=== PATIENT | female | born 2000 | race Two or more races ===

== ENCOUNTER 2021-02-08 00:35 | Outpatient (CLI) | payer OTHER ==
[2021-02-08] MEDS ORDERED: PRENATAL CAPLE1 EAC1 PO (02:57)
[2021-02-08] MEDS ORDERED: FE C TABLET1 EACH PO (02:57)
== END 2021-02-08 12:00 | disposition home or self-care (01) ==
LOC: OBS/DEL 00:35 → CPU-OBS 00:35 → OBS/DEL 00:39 → CPU-OBS 12:00
PROVIDERS: ATTEND Specialist
DX: R10.2 Pelvic and perineal pain (principal); Z3A.24 24 weeks gestation of pregnancy

== ENCOUNTER 2021-04-07 19:56 | Emergency (ER) | payer OTHER ==
[~2021-04-07] VITALS: Ht 137.2 cm; Wt 50.3 kg
[~2021-04-07 19:56] MED LIST: FE C TABLET1 EACH PO; PRENATAL CAPLE1 EAC1 PO
== END 2021-04-07 23:21 | disposition home or self-care (01) ==
LOC: ER 19:56
DX: O26.891 Other specified pregnancy related conditions, first trimester (principal); Z3A.08 8 weeks gestation of pregnancy; Z37.0 Single live birth; T78.40XA Allergy, unspecified, initial encounter

== ENCOUNTER 2021-05-16 23:39 | Inpatient (IN) | payer OTHER ==
[~2021-05-16] VITALS: Ht 137.2 cm; Wt 53.5 kg
== END 2021-05-19 11:28 | disposition home or self-care (01) | DRG 807 ==
LOC: OBS/DEL 23:39 → LDR 05-17 09:17 → OBS/DEL 05-17 09:17 → OB/GYN 05-17 18:44
PROVIDERS: ADMIT Specialist; ATTEND Specialist
PROC: 10E0XZZ Delivery of Products of Conception, External Approach (ICD-10-PCS; principal; 2021-05-17)
PROC: 4A1HXCZ Monitoring of Products of Conception, Cardiac Rate, External Approach (ICD-10-PCS; 2021-05-17)
DX: O80 Encounter for full-term uncomplicated delivery (principal); Z37.0 Single live birth; Z3A.38 38 weeks gestation of pregnancy; Z20.822 Contact with and (suspected) exposure to COVID-19

== ENCOUNTER 2022-02-22 14:27 | Inpatient (IN) | payer OTHER ==
[~2022-02-22] VITALS: Ht 121.9 cm; Wt 49.9 kg
[2022-02-27] MEDS ORDERED: METRONIDAZOLE500 MG PO (14:41)
== END 2022-02-27 14:57 | disposition home or self-care (01) | DRG 832 ==
LOC: OBS/DEL 14:27 → OB/GYN 02-23 05:35 → LDR 02-23 05:35 → OBS/DEL 02-23 05:35 → OB/GYN 02-24 20:19
PROVIDERS: ADMIT Specialist; ATTEND Specialist
PROC: 4A1HXCZ Monitoring of Products of Conception, Cardiac Rate, External Approach (ICD-10-PCS; principal; 2022-02-23)
PROC: BY4FZZZ Ultrasonography of Third Trimester, Single Fetus (ICD-10-PCS; 2022-02-23)
PROC: BU4CZZZ Ultrasonography of Uterus and Ovaries (ICD-10-PCS; 2022-02-23)
DX: O60.03 Preterm labor without delivery, third trimester (principal); O23.593 Infection of other part of genital tract in pregnancy, third trimester; B96.89 Other specified bacterial agents as the cause of diseases classified elsewhere; Z3A.34 34 weeks gestation of pregnancy

== ENCOUNTER 2022-03-01 13:24 | Outpatient (CLI) | payer OTHER ==
[~2022-03-01 13:24] MED LIST changes: +METRONIDAZOLE500 MG PO
== END 2022-03-02 18:00 | disposition home or self-care (01) ==
LOC: OBS/DEL 13:24
PROVIDERS: ATTEND Specialist
DX: O47.03 False labor before 37 completed weeks of gestation, third trimester (principal); Z3A.34 34 weeks gestation of pregnancy

== ENCOUNTER 2022-03-11 20:20 | Outpatient (CLI) | payer OTHER | END 2022-03-13 14:02 | disposition home or self-care (01) | LOC: OBS/DEL 20:20 | PROVIDERS: ATTEND Specialist | DX: O47.03 False labor before 37 completed weeks of gestation, third trimester (principal); O99.013 Anemia complicating pregnancy, third trimester; Z3A.35 35 weeks gestation of pregnancy ==

== ENCOUNTER 2022-03-14 16:11 | Inpatient (IN) | payer OTHER ==
[~2022-03-14] VITALS: Ht 137.2 cm; Wt 49.0 kg
== END 2022-03-16 16:24 | disposition home or self-care (01) | DRG 807 ==
LOC: LDR 16:11 → OB/GYN 16:11
PROVIDERS: ADMIT Specialist; ATTEND Specialist
PROC: 10E0XZZ Delivery of Products of Conception, External Approach (ICD-10-PCS; principal; 2022-03-14)
PROC: 4A1HXCZ Monitoring of Products of Conception, Cardiac Rate, External Approach (ICD-10-PCS; 2022-03-14)
DX: O60.14X0 Preterm labor third trimester with preterm delivery third trimester, not applicable or unspecified (principal); Z37.0 Single live birth; O99.824 Streptococcus B carrier state complicating childbirth; Z3A.36 36 weeks gestation of pregnancy; Z20.822 Contact with and (suspected) exposure to COVID-19